=== PATIENT | female | born 1975 | race Caucasian/White ===

== ENCOUNTER 2017-05-09 10:32 | Emergency (ER) | payer MEDICAID ==
[~2017-05-09] VITALS: Ht 160 cm; Wt 64.0 kg
[2017-05-09 10:35] VITALS: Ht 160 cm; Wt 64.0 kg
[2017-05-09] MEDS ORDERED: ONDANSETRON 4 MG INJ IV STA ×2 (11:11→12:57)
[2017-05-09] MEDS ORDERED: MECLIZINE 12.5 MG TAB PO ONE ×2 (11:30→13:00)
[2017-05-09 11:47] LABS: URINE BLOOD (Dip) POC 3+ (NEGATIVE)
--- NOTE | 2017-05-09 12:00 | ERD ---
ER Documentation Chief Complaint Date/Time DATE: 05/09/17 TIME: 11:57 Chief Complaint NAUSEA, VOMITING AND VERTIGO X 4 DAYS HPI This is a 42-year-old female presenting to the emergency department with nausea , vomiting, dizziness and vertigo 4 days. Patient states she has had severe nausea with 4 episodes of nonbloody nonbilious emesis today. Patient also complains of frontal headache rating pain 5/10. Patient states headache developed after nausea vomiting and dizziness. Patient reports light sensitivity. Has difficulty keeping her eyes open due to dizziness. No head trauma or fall. No abdominal pain. No diarrhea or constipation. Last menstrual period started yesterday. ROS All systems reviewed and are negative except as per history of present illness. Medications Home Meds Active Scripts Meclizine Hcl* (Antivert*) 12.5 Mg Tab, 12.5 MG PO Q6H Y for DIZZINESS, #20 TAB Prov:MARCO LI NP 05/09/17 Allergies Allergies: Coded Allergies: No Known Allergy (Unverified , 05/09/17) PMhx/Soc Hx Alcohol Use: No Hx Substance Use: No Hx Tobacco Use: No Smoking Status: Never smoker Physical Exam Vitals Vital Signs Date Time Temp Pulse Resp B/P Pulse Ox O2 Delivery O2 Flow Rate FiO2 05/09/17 10:35 97.7 68 18 112/70 99 Physical Exam Const: Alert, patient is seen with eyes closed and appears uncomfortable due to dizziness Head: Atraumatic Eyes: Normal Conjunctiva, PERRL, ENT: Normal External Ears, Nose and Mouth. Neck: Full range of motion..~ No meningismus. Resp: Clear to auscultation bilaterally Cardio: Regular rate and rhythm, no murmurs Abd: Soft, non tender, non distended. Normal bowel sounds Skin: No petechiae or rashes Back: No midline or flank tenderness Ext: No cyanosis, or edema Neur: Awake and alert Psych: Normal Mood and Affect Result Diagram: 05/09/17 1140 05/09/17 1140 Results 24 hrs Laboratory Tests Test 05/09/17 11:40 05/09/17 11:53 White Blood Count 10.210^3/ul Red Blood Count 4.6110^6/ul Hemoglobin 13.6g/dl Hematocrit 40.8% Mean Corpuscular Volume 88.5fl Mean Corpuscular Hemoglobin 29.5pg Mean Corpuscular Hemoglobin Concent 33.3g/dl Red Cell Distribution Width 13.1% Platelet Count 66318^3/UL Mean Platelet Volume 12.0fl Neutrophils % 83.4% Lymphocytes % 11.8% Monocytes % 4.0% Eosinophils % 0.1% Basophils % 0.2% Nucleated Red Blood Cells % 0.0/100WBC Neutrophils # 8.510^3/ul Lymphocytes # 1.210^3/ul Monocytes # 0.410^3/ul Eosinophils # 0.010^3/ul Basophils # 0.010^3/ul Nucleated Red Blood Cells # 0.010^3/ul Sodium Level 147mmol/L Potassium Level 3.7mmol/L Chloride Level 106mmol/L Carbon Dioxide Level 24mmol/L Anion Gap 21 Blood Urea Nitrogen 12mg/dl Creatinine 0.72mg/dl Glucose Level 126mg/dl Calcium Level 9.8mg/dl Bedside Urine pH (LAB) 5.5 Bedside Urine Protein (LAB) 1+ Bedside Urine Glucose (UA) Negative Bedside Urine Ketones (LAB) Negative Bedside Urine Blood 3+ Bedside Urine Nitrite (LAB) Negative Bedside Urine Leukocyte Esterase (L Negative Current Medications Medications (Trade) Dose Ordered Sig/Karen Route PRN Reason Start Time Stop Time Status Last Admin Dose Admin Meclizine HCl (Antivert) 25 mg ONCE ONCE PO 05/09/17 11:30 05/09/17 11:31 DC 05/09/17 11:35 Ondansetron HCl (Zofran Inj) 4 mg ONCE STAT IV 05/09/17 11:11 05/09/17 11:15 DC 05/09/17 11:35 Meclizine HCl (Antivert) 25 mg ONCE ONCE PO 05/09/17 13:00 05/09/17 13:01 DC 05/09/17 13:25 Ondansetron HCl (Zofran Inj) 4 mg ONCE STAT IV 05/09/17 12:57 05/09/17 12:59 DC 05/09/17 13:20 Diazepam (Valium) 2.5 mg ONCE ONCE PO 05/09/17 13:30 05/09/17 13:31 DC 05/09/17 13:21 Procedures/[place] [id number] Radiology Main Line: [phone] DIAGNOSTIC IMAGING REPORT Patient: JENNIFER GALLEGOS : 1975 Age: 42 Sex: F MR #: [id number] DOS: 05/09/17 1144 Ordering MD: MARCO LI NP Location: [facility] Room/Bed: PROCEDURE: CT brain without contrast CLINICAL INDICATION: Headache, nausea, vertigo TECHNIQUE: CT of the brain without contrast was performed on a multidetector CT scanner, with multiplanar reformats. One or more of the following dose reduction techniques were used: Automated exposure control, adjustment in mA and / or kV according to patient size, use of iterative reconstructive technique. CTDIvol = 44 mGy; DLP = 630 mGy-cm. COMPARISON: None available FINDINGS: No acute intracranial hemorrhage is identified. No extra-axial fluid collection is seen. There is no mass effect. No midline shift is identified. Ventricles and sulci are within normal limits for size and configuration. Punctate peripheral calcifications are identified in the right frontal, left occipital regions. Walker-white differentiation is preserved. Osseous structures are unremarkable. Mastoid air cells and imaged paranasal sinuses grossly clear. IMPRESSION: 1. No evidence of acute intracranial pathology. 2. 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 MDM: 42-year-old female presents emergency department with nausea, vomiting, dizziness and vertigo 4 days. Patient also reports headache rating pain 5/10 to frontal area. Labs drawn and urine collected. IV access obtained and patient given meclizine p.o and Zofran 4 mg IV. Upon reassessment, patient continues to have dizziness and nausea. Labs are unremarkable for anemia, infection or electrolyte imbalance. Urine is negative for infection. Consulted Dr. Barnett who suggested giving patient another dose of meclizine and 1 dose of Valium 2.[address] head reviewed by radiologist as no evidence of acute intracranial pathology. Punctate cerebral calcifications, which may be post infectious/inflammatory. Upon reassessment, patient states she is feeling somewhat better and is now able to open her eyes and sit up slightly. Patient continues to have moderate to severe dizziness, vertigo and nausea. Consulted Dr. Barnett Patient signed out to Ben Cervantes PA-C. Departure Diagnosis: Primary Impression: Vertigo Condition: Stable MARCO LI EMPLOYMENT INTERVIEWER May 09, 2017 12:00
[2017-05-09 12:07] LABS: BASOPHILS % 0.2 % (0.0-2.0); EOSINOPHILS % 0.1 % (0.0-7.0); HEMATOCRIT 40.8 % (37.0-47.0); HEMOGLOBIN 13.6 g/dl (12.0-16.0); LYMPHOCYTES # 1.2 10^3/ul (0.8-2.9); LYMPHOCYTES % 11.8 % (15.0-51.0); MEAN CORPUSCULAR HEMOGLOBIN 29.5 pg (29.0-33.0); MEAN CORPUSCULAR HGB CONC 33.3 g/dl (32.0-37.0); MEAN CORPUSCULAR VOLUME 88.5 fl (82.0-101.0); MONOCYTE # 0.4 10^3/ul (0.3-0.9); NEUTROPHIL # 8.5 10^3/ul (1.6-7.5); NEUTROPHILS % 83.4 % (39.0-77.0); PLATELET COUNT 250 10^3/UL (140-415); RED BLOOD COUNT 4.61 10^6/ul (4.20-5.40); RED CELL DISTRIBUTION WIDTH 13.1 % (11.5-14.5); WHITE BLOOD COUNT 10.2 10^3/ul (4.8-10.8)
[2017-05-09 12:23] LABS: CALCIUM 9.8 mg/dl (8.4-10.2); CREATININE 0.72 mg/dl (0.44-1.00); POTASSIUM 3.7 mmol/L (3.5-5.1)
--- NOTE | 2017-05-09 12:48 | RADRPT ---
PROCEDURE: CT brain without contrast CLINICAL INDICATION: Headache, nausea, vertigo TECHNIQUE: CT of the brain without contrast was performed on a multidetector CT scanner, with multi planar reformats. One or more of the following dose reduction techniques were used: Automated expos ure control, adjustment in mA and / or kV according to patient size, use of iterative reconstructive technique. CTDIvol = 44 mGy; DLP = 630 mGy-cm. COMPARISON: None available FINDINGS: No acute intracranial hemorrhage is identified. No extra-axial fluid collection is seen. There is no mass effect. No midline shift is identified. Ventricles and sulci are within normal limits for size and configuration. Punctate peripheral calcifications are identified in the right frontal, left occipital regions. Gra y-white differentiation is preserved. Osseous structures are unremarkable. Mastoid air cells and imaged paranasal sinuses grossly clear. IMPRESSION: 1. No evidence of acute intracranial pathology. 2. 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 RPTAT: VV .Lázaro Sam MD, Date Time Electronically viewed and signed by .Lázaro Sam MD, on 05/09/2017 12:48 .O/
[2017-05-09] MEDS ORDERED: DIAZEPAM 5 MG TAB PO ONE (13:30)
[2017-05-09] MEDS ORDERED: MECL12.574 PO (15:31)
[2017-05-09 15:46] VITALS: BP 106/54; PULSE 61; RESP 18; TEMP 98.3
[2017-05-09] MEDS ORDERED: ONDA4TAB14 PO (16:20)
[2017-05-14 16:12] LABS: URINE BLOOD (Dip) POC 3+ (NEGATIVE)
== END 2017-05-09 16:20 | disposition home or self-care (01) ==
LOC: FTE 10:32
DX: R42 Dizziness and giddiness (principal)
CPT/HCPCS: 70450; 80048; 81003; 85025; J2405; Z7610; 96374; 96376

== ENCOUNTER 2018-02-22 16:52 | Emergency (ER) | END 2018-02-22 20:36 | disposition home or self-care (01) ==